=== PATIENT | male | born 1995 ===

== ENCOUNTER 2024-10-19 10:48 | Outpatient (REF) | payer MEDICAID, SELFPAY ==
--- OUTSIDE RECORDS SUMMARY | 2024-10-19 12:38 | XMS_ITS | Encounter Summary ---
Author Organization [employer] Address [address] [facility] [address] [place] [address] Care Team Providers Care Loom Blower Name Role Phone Unavailable Primary Care Provider Unavailabl e Encounter Details Date Type Department Care Team (Late st Contact Info) Description 10/19/2024 9:00 AM EDT Office Visit [facility] [address] [place] [address] Screening examination for STI (Primary Dx); Palpitations Social History Tobacco Use Types Packs/Day Years Used Date Smoking Tobacco: Never Assessed Sex and Gender Information Value Date Recorded Sex Assigned at Male 07/26/2024 9:44 AM EST Legal Sex Male 11:29 AM EDT Gender Identity Male 07/26/2024 9:44 AM EST Sexual Orientation Straight 07/26/2024 9: 44 AM EST documented as of this encounter Last Filed Vital Signs Vital Sign Reading Time Taken Comments Blood Pressure 123/68 10/19/2024 9:14 AM EDT Pulse 67 10/19/2024 9:14 AM EDT Temperature 36.5 ??C (97.7 ??F) 10/19/2024 9:14 AM ED T Respiratory Rate 16 10/19/2024 9:14 AM EDT Oxygen Saturation - - Inhaled Oxygen Concentration - - Weight - - Height - - Body Mass Index - - documented in this encounter Plan of Treatment Scheduled Orders Name Type Priority Associated Diagnoses Orde r Schedule Chlamydia/N. Gonorrhoeae RNA, TMA, Urine Microbiology Routine Screening examination for STI Expected: 10/19/2024 (Approximate), Expires: 10/19/2025 Hepatitis B Core Antibody, Total Lab Routine Screening examination for STI Expected: 10/19/2024 (Approximate), Expires: 10/19/2025 Hepatitis B Surface Antibody, Qualitative Lab Routine Screening examination for STI Expected: 10/19/2024 (Approximate), Expires: 10/19/2025 Hepatitis B surface antigen, EIA Lab Routine Screening examination for STI Expected: 10/19/2024 (Approximate), Expires: 10/19/2025 Hepatitis C Antibody with Reflex to HCV, RNA, Quantitative, Real-Time PCR Lab Routine Screening examination for STI Expected: 10/19/2024 (Approximate), Expires: 10/19/2025 HIV-1/2 Antigen and Antibodies, Fourth Generation, with Reflexes Lab Routine Screening examination for STI Expected: 10/19/2024 (Approximate), Expires: 10/19/2025 Syphilis Screen Lab Routine Screening examination for STI Expected: 10/19/2024 (Approximate), Expires: 10/19/2025 TSH W/Reflex to FT4 Lab Routine Palpitations Expected: 10/19/2024 (Approximate), Expires: 10/19/2025 CBC auto differential Lab Routine Palpitations Expected: 10/19/2024 (Approximate), Expires: 10/19/2025 documented as of this encounter Visit Diagnoses Diagnosis Screening examination for STI- Primary Palpitations documented in this encounter
--- OUTSIDE RECORDS SUMMARY | 2024-10-19 12:38 | XMS_ITS | Clinical Summary ---
Author Organization [employer] Address [address] [facility] [address] [place] [id number] Care Team Providers Care Resident Athletic Trainer Name Role Phone Unavailable Primary Care Provider Unavailabl e Allergies No known active allergies Medications hydrOXYzine HCl (Atarax) 25 MG tabletIndication s:Palpitations Take 1 tablet (25 mg) by mouth 4 times daily. 120 tablet 10/19/2024 Active Encounters Date Type Department Care Team Description 10/19/2024 9:00 AM EDT Office Visit [facility] [address] [place] [address] Screening examination for STI (Primary Dx); Palpitations from Last 3 Months Social History Tobacco Use Types Packs/Day Years Used Date Smoking Tobacco: Never Assessed Sex and Gender Information Value Date Recorded Sex Assigned at Male 07/26/2024 9:44 AM EST Legal Sex Male 11:29 AM EDT Gender Identity Male 07/26/2024 9:44 AM EST Sexual Orientation Straight 07/26/2024 9: 44 AM EST Last Filed Vital Signs Vital Sign Reading Time Taken Comments Blood Pressure 123/68 10/19/2024 9:14 AM EDT Pulse 67 10/19/2024 9:14 AM EDT Temperature 36.5 ??C (97.7 ??F) 10/19/2024 9:14 AM ED T Respiratory Rate 16 10/19/2024 9:14 AM EDT Oxygen Saturation - - Inhaled Oxygen Concentration - - Weight - - Height - - Body Mass Index - - Plan of Treatment Health Maintenance Due Date Last Done Comments Depression Screening 1994 HIV Screening 1994 SDOH Screening 1994 Alcohol/Substance Use Screening 2006 Tobacco Screening 2006 Family Planning (PISQ) 2009 Hepatitis C Screening 2012 DTaP/Tdap/Td Vaccines (1 - Tdap) 2013 Hepatitis B Vaccines (1 of 3 - 19+ 3-dose series) 2013 COVID-19 Vaccine (1 - 2023-2 5 season) 2024 Influenza Vaccine (#1) 2024 Zoster Vaccines (1 of 2) 2044 RSV Patients and Pa tients Aged 60 years or older (1 - 1-dose 75+ series) 2069 HIB Vaccines Aged Out No longer eligi ble based on patient's age to complete this topic HPV Vaccines Aged Out No longer eligi ble based on patient's age to complete this topic Hepatitis A Vaccines Aged Out No long er eligible based on patient's age to complete this topic IPV Vaccines Aged Out No longer eligi ble based on patient's age to complete this topic Meningococcal Vaccine Aged Out No altaf cristopher eligible based on patient's age to complete this topic Pneumococcal Vaccine: Pediat rics (0 to 5 Years) and At-Risk Patients (6 to 49) Years) Aged Out No longer eligible b ased on patient's age to complete this topic RSV under 20 months Aged Out No longe r eligible based on patient's age to complete this topic Rotavirus Vaccines Aged Out No longer eligible based on patient's age to complete this topic Insurance [facility] LIMITED HS FULL
[2024-10-19 13:52] LABS: MANUAL DIFF FLAG NO
[2024-10-19 13:59] LABS: Basophils Percent Auto 0.3 % (0-2); Eosinophils Percent Auto 0.4 % (0-4); Hematocrit 49.5 % (42.0-52.0); Hemoglobin 16.3 g/dl (14.0-18.0); Imm Gran Abs Auto 0.02 X10*3/uL (0.00-0.03); Imm Gran Pct Auto 0.3 % (0.0-0.4); Lymphocytes Absolute Auto 2.3 X10*3/uL (1.2-4.9); Lymphocytes Percent Auto 33.4 % (20-40); Mean Corpuscular HGB Conc 32.9 g/dl (31.0-36.0); Mean Corpuscular Hemoglobin 28.7 pg (27.0-33.0); Mean Corpuscular Volume 87.3 fL (80.0-98.0); Mean Platelet Volume 10.7 fL (9.4-12.4); Monocytes Absolute Auto 0.4 X10*3/uL (0.1-1.2); Monocytes Percent Auto 6.1 % (2-11); Neutrophils Percent Auto 59.5 % (45-73); Platelet Count 254 X10*3/uL (160-400); Red Blood Count 5.67 X10*6/uL (4.60-5.80); Red Cell Distribution Width 13.2 % (11.0-16.0); White Blood Count 6.7 X10*3/uL (4.8-10.8)
[2024-10-19 14:29] LABS: TSH reflex Free T4 1.33 uIU/mL (0.32-4.0)
[2024-10-19 14:30] LABS: Syphilis Screen Nonreactive (Nonreactive)
[2024-10-19 14:33] LABS: HBS Num1 5.54 mIU/mL (0-7.99); HBc Num1 0.09 S/CO (0.00-0.79); HIV AB/AG Nonreactive (Nonreactive); HIV Num 1 0.06 S/CO (0.00-0.99); Hepatitis B Core Antibody Nonreactive (Nonreactive); Hepatitis B Surface Antigen Negative (Negative); ~HepC Num1 0.16 S/CO (0.00-0.79); ~Hepatitis B Surface Antibody NONREACTIVE (Nonreactive); ~Hepatitis C Antibody Nonreactive (Nonreactive)
== END 2024-10-19 10:49 | disposition home or self-care (01) ==
LOC: HO.HHCL 10:48
PROVIDERS: Visit Provider Nurse Practitioner
DX: Z11.3 Encounter for screening for infections with a predominantly sexual mode of transmission (principal); R00.2 Palpitations
CPT/HCPCS: 36415; 84443; 85025; 86704; 86706; 86780; 86803; 87340; 87389

== ENCOUNTER 2024-10-19 16:30 | Outpatient (REF) | payer MEDICAID, SELFPAY ==
--- OUTSIDE RECORDS SUMMARY | 2024-10-19 18:39 | XMS_ITS | Clinical Summary ---
Author Organization [employer] Address [address] [facility] [facility] [address] [place] [address] Care Team Providers Care Cardiograph Operator Name Role Phone Unavailable Primary Care Provider Unavailabl e Allergies No known active allergies Medications * This document contains information received from the source organization and may not represent a complete record from that organization. hydrOXYzine HCl (Atarax) 25 MG tabletIndication s:Palpitations Take 1 tablet (25 mg) by mouth 4 times daily. 120 tablet 10/19/2024 Active Encounters * This document contains information received from the source organization and may not represent a complete record from that organization. Date Type Department Care Team Description 10/19/2024 9:00 AM EDT Office Visit [facility] [address] [place] [address] Palpitations (Primary Dx); Screening examination for STI from Last 3 Months Social History Tobacco [...] Date Last Done Comments Depression Screening 1994 SDOH Screening 1994 Alcohol/Substance Use Screening 2006 Tobacco Screening 2006 Family Planning (PISQ) 2009 DTaP/Tdap/Td Vaccines (1 - Tdap) 2013 Hepatitis B Vaccines (1 of 3 - 19+ 3-dose series) 2013 COVID-19 Vaccine (1 - 2023-2 5 season) 2024 Influenza Vaccine (#1) 2024 Zoster Vaccines (1 of 2) 2044 RSV Patients and Pa tients Aged 60 years or older (1 - 1-dose 75+ series) 2069 HIV Screening Completed 10/19/2024 Hepatitis C Screening Completed 10/19/2024 HIB Vaccines Aged Out No longer eligi [...] to 49) Years) Aged Out No longer elig ible based on patient's age to complete this topic RSV under 20 months Aged Out No longe r eligible based on patient's age to complete this topic Rotavirus Vaccines Aged Out No longer eligible based on patient's age to complete this topic Procedures Procedure Name Priority Date/Time Associated Diagnosis Comments CBC WITH AUTO DIFFERENTIAL Routine 10/19/2024 10:55 AM EDT Palpitations TSH W/REFLEX TO FT4 Routine 10/19/2024 1 0:55 AM EDT Palpitations SYPHILIS SCREEN Routine 10/19/2024 10:55 AM EDT Screening examination for STI HIV 1/2 ANTIGEN/ANTIBODY, FOURTH GENERATION W/RFL Routine 10/19/2024 10:55 AM EDT Screening examination for STI HEPATITIS C AB W/REFL TO HCV RNA, QN, PCR Routine 10/19/2024 10:55 AM EDT Screening examination for STI HEPATITIS B SURFACE ANTIGEN, EIA Routine 10/19/2024 10:55 AM EDT Screening examination for STI HEPATITIS B SURFACE ANTIBODY, QUALITATIVE Routine 10/19/2024 10:55 AM EDT Screening examination for STI HEPATITIS B CORE AB TOTAL Routine 10/19/2024 10:55 AM EDT Screening examination for STI from Last 3 Months Results * Syphilis Screen (10/19/2024 10:55 AM EDT) Pathologist [facility] Syphilis Screen Nonreactive Nonreactive [facility] Blood Venous blood specimen / Unknown 10/19/2024 10:55 AM EDT 10/19/2024 1:[address] [facility] MECHANIC CHIEF LAB BLOOD ORDERABLES Final Resu lt Performing Organization Address City/[facility]/ZIP Co de Phone Number [facility] [address] [place] [address] [phone] * TSH W/Reflex to FT4 (10/19/2024 10:55 AM EDT) Pathologist [facility] TSH reflex Free T4 1.33 0.32 - 4.0 uIU/mL [facility] Blood Venous blood specimen / Unknown 10/19/2024 10:55 AM EDT 10/19/2024 1:49 PM EDT [facility] MECHANIC CHIEF LAB BLOOD ORDERABLES Final Resu lt Performing Organization Address City/[facility]/ZIP Co de Phone Number [facility] [address] [place] [phone] * CBC auto differential (10/19/2024 10:55 AM EDT) Pathologist [facility] White Blood Count 6.7 4.8 - 10.8 X10*3/uL [facility] Red Blood Count 5.67 4.60 - 5.80 X10*6/uL [facility] Hemoglobin 16.3 14.0 - 18.0 g/dl [facility] Hematocrit 49.5 42.0 - 52.0 % [facility] Mean Corpuscular Volume 87.3 80.0 - 98.0 fL [facility] Mean Corpuscular Hemoglobin 28.7 27.0 - 33.0 pg [facility] Mean Corpuscular HGB Conc 32.9 31.0 - 36.0 g/dl [facility] Red Cell Distribution Width 13.2 11.0 - 16.0 % [facility] Platelet Count 254 160 - 400 X10*3/uL [facility] Mean Platelet Volume 10.7 9.4 - 12.4 fL [facility] Neutrophils Percent Auto 59.5 45 - 73 % [facility] Imm Gran Pct Auto 0.3 0.0 - 0.4 % [facility] Lymphocytes Percent Auto 33.4 20 - 40 % [facility] Monocytes Percent Auto 6.1 2 - 11 % [facility] Eosinophils Percent Auto 0.4 0 - 4 % [facility] Basophils Percent Auto 0.3 0 - 2 % [facility] NRBC Pct Auto 0.0 0.0 - 0.2 /100WBC [facility] Neutrophils Absolute Auto 4.0 2.0 - 8.3 x10*3/uL [facility] Imm Gran Abs Auto 0.02 0.00 - 0.03 X10*3/uL [facility] Lymphocytes Absolute Auto 2.3 1.2 - 4.9 X10*3/uL [facility] Monocytes Absolute Auto 0.4 0.1 - 1.2 X10*3/uL [facility] Eosinophils Absolute Auto 0.0 0.0 - 0.4 X10*3/uL [facility] Basophils Absolute Auto 0.0 0.0 - 0.2 X10*3/uL [facility] NRBC Abs Auto 0.000 0.0 - 0.012 X10*3/uL [facility] Blood Venous blood specimen / Unknown 10/19/2024 10:55 AM EDT 10/19/2024 1:49 PM EDT us Jenni Fontana MECHANIC CHIEF LAB BLOOD ORDERABLES Final Resu lt Performing Organization Address City/[facility]/ZIP Co de Phone Number [facility] [address] [place] [phone] * Hepatitis C Antibody with Reflex to HCV, RNA, Quantitative, Real-Time PCR (10/19/2024 10:55 AM EDT) Hepatitis C Antibody Nonreactive Nonreactive [facility] Comment:Antibodies to HCV no t detected; does not exclude early acuteHCV infection. Blood Venous blood specimen / Unknown 10/19/2024 10:55 AM EDT 10/19/2024 1:49 PM EDT Jenni Anthony MECHANIC CHIEF LAB BLOOD ORDERABLES Final Resu lt Performing Organization Address [facility] [[email or web address]] Co de Phone Number [facility] [address] [place] [phone] * Hepatitis B surface antigen, EIA (10/19/2024 10:55 AM EDT) Hepatitis B Surface Ag Negative Negative [facility] Blood Venous blood specimen / Unknown 10/19/2024 10:55 AM EDT 10/19/2024 1:49 PM EDT us Jenni Fontana MECHANIC CHIEF LAB BLOOD ORDERABLES Final Resu lt Performing Organization Address [facility] [[email or web address]] Co de Phone Number [facility] [address] [place] [phone] * Hepatitis B Core Antibody, Total (10/19/2024 10:55 AM EDT) Hepatitis B Core Antibody Nonreactive Nonreactive [facility] Blood Venous blood specimen / Unknown 10/19/2024 10:55 AM EDT 10/19/2024 1:49 PM EDT [facility] MECHANIC CHIEF LAB BLOOD ORDERABLES Final Resu lt Performing Organization Address City/[facility]/ZIP Co de Phone Number [facility] [address] [place] [phone] * HIV-1/2 Antigen and Antibodies, Fourth Generation, with Reflexes (10/19/2024 10:55 AM EDT) HIV AB/AG Nonreactive Nonreactive [facility] Comment:HIV-1 p24 Ag and/or HIV-1/HIV-2 Ab not detected.A test result that is nonreactive does not exclude thepossibility of exposure to or infection with HIV-1 and/orHIV-2. Nonreactive results in this assay for individualswith prior exposure to HIV-1 and/or HIV-2 may be due toantigen and antibody levels that are below the limit ofdetection of this assay.The [employer] HIV Ag/Ab Combo assay result andsupplemental assay results should be interpreted inconjunction with the patient's clinical presentation,history and other laboratory results. If the results areinconsistent with clinical evidence, additional testing issuggested to confirm the result. Blood Venous blood specimen / Unknown 10/19/2024 10:55 AM EDT 10/19/2024 1:49 PM EDT [facility] MECHANIC CHIEF LAB BLOOD ORDERABLES Final Resu lt Performing Organization Address City/[facility]/ZIP Co de Phone Number [facility] [address] [place] [phone] * Hepatitis B Surface Antibody, Qualitative (10/19/2024 10:55 AM EDT) ~Hepatitis B Surface Antibody NONREACTIVE Nonreactive [facility] Comment:Nonreactive: < 8.00 mIU/mL Blood Venous blood specimen / Unknown 10/19/2024 10:55 AM EDT 10/19/2024 1:49 PM EDT us Jenni Fontana MECHANIC CHIEF LAB BLOOD ORDERABLES Final Resu lt [facility] [address] [place] [phone] from Last 3 Months Insurance [employer] [facility] HSN FULL
--- OUTSIDE RECORDS SUMMARY | 2024-10-19 18:39 | XMS_ITS | Encounter Summary ---
Author Organization [employer] Address [address] [place] [address] Care Team Providers Care Offc Spec Name Role Phone Unavailable Primary Care Provider Unavailabl e Encounter Details Date Type Department Care Team (Late st Contact Info) Description 10/19/2024 9:00 AM EDT Office Visit [facility] [address] [place] [address] Palpitations (Primary Dx); Screening examination for STI Social History Tobacco Use Types Packs/Day Years [...] documented in this encounter Plan of Treatment Pending Results Name Type Priority Associated Diagnoses Date /Time ECG 12 lead ECG Routine Palpitations 10/19/2024 1:29 PM EDT Scheduled Orders Name Type Priority Associated Diagnoses Orde r Schedule Chlamydia/N. Gonorrhoeae RNA, TMA, Urine Microbiology Routine Screening examination for STI Expected: 10/19/2024 (Approximate), Expires: 10/19/2025 documented as of this encounter Procedures Procedure Name Priority Date/Time Associated Diagnosis Comments SYPHILIS SCREEN Routine 10/19/2024 10:55 AM EDT Screening examination for STI TSH W/REFLEX TO FT4 Routine 10/19/2024 1 0:55 AM EDT Palpitations CBC WITH AUTO DIFFERENTIAL Routine 10/19/2024 10:55 AM EDT Palpitations HEPATITIS C AB W/REFL TO HCV RNA, [...] 10:55 AM EDT Screening examination for STI documented in this encounter Results * CBC auto differential (10/19/2024 10:55 AM EDT) White Blood Count 6.7 4.8 - 10.8 X10*3/uL [facility] Red Blood Count 5.67 4.60 - 5.80 X10*6/uL [facility] Hemoglobin 16.3 14.0 - 18.0 g/dl [facility] Hematocrit 49.5 42.0 - 52.0 % [facility] Mean Corpuscular Volume 87.3 80.0 - 98.0 fL [facility] Mean Corpuscular Hemoglobin 28.7 27.0 - 33.0 pg [facility] Mean Corpuscular HGB Conc 32.9 31.0 - 36.0 g/dl [facility] Red Cell Distribution Width 13.2 11.0 - 16.0 % [facility] Platelet Count 254 160 - 400 X10*3/uL [facility] Mean Platelet Volume 10.7 9.4 - 12.4 fL [facility] Neutrophils Percent Auto 59.5 45 - 73 % [facility] Imm Gran Pct Auto 0.3 0.0 - 0.4 % [facility] Lymphocytes Percent Auto 33.4 20 - 40 % [facility] Monocytes Percent Auto 6.1 2 - 11 % [facility] Eosinophils Percent Auto 0.4 0 - 4 % [facility] Basophils Percent Auto 0.3 0 - 2 % [facility] NRBC Pct Auto 0.0 0.0 - 0.2 /100WBC [facility] Neutrophils Absolute Auto 4.0 2.0 - 8.3 x10*3/uL [facility] Imm Gran Abs Auto 0.02 0.00 - 0.03 X10*3/uL [facility] Lymphocytes Absolute Auto 2.3 1.2 - 4.9 X10*3/uL [facility] Monocytes Absolute Auto 0.4 0.1 - 1.2 X10*3/uL [facility] Eosinophils Absolute Auto 0.0 0.0 - 0.4 X10*3/uL [facility] Basophils Absolute Auto 0.0 0.0 - 0.2 X10*3/uL [facility] NRBC Abs Auto 0.000 0.0 - 0.012 X10*3/uL [facility] Blood Venous blood specimen / Unknown 10/19/2024 10:55 AM EDT 10/19/2024 1:49 PM EDT us Jenni Fontana IRRIGATION SYSTEM OPERATOR LAB BLOOD ORDERABLES Final Resu lt [facility] [address] [place] [phone] * TSH W/Reflex to FT4 (10/19/2024 10:55 AM EDT) TSH reflex Free T4 1.33 0.32 - 4.0 uIU/mL [facility] Blood Venous blood specimen / Unknown 10/19/2024 10:55 AM EDT 10/19/2024 1:[address] [facility] IRRIGATION SYSTEM OPERATOR LAB BLOOD ORDERABLES Final Resu lt Performing Organization Address City/[facility]/ZIP Co de Phone Number [facility] [address] [place] [phone] * Syphilis Screen (10/19/2024 10:55 AM EDT) Syphilis Screen Nonreactive Nonreactive [facility] Blood Venous blood specimen / Unknown 10/19/2024 10:55 AM EDT 10/19/2024 1:49 PM EDT [facility] LAB BLOOD ORDERABLES Final Resu lt Performing Organization Address City/[facility] Co de Phone Number [facility] [address] [place] [phone] * HIV-1/2 Antigen and Antibodies, Fourth Generation, with Reflexes (10/19/2024 10:55 AM EDT) HIV AB/AG Nonreactive Nonreactive [facility] Comment:HIV-1 p24 Ag and/or HIV-1/HIV-2 Ab not detected.A test result that is nonreactive does not exclude thepossibility of exposure to or infection with HIV-1 and/orHIV-2. Nonreactive results in this assay for individualswith prior exposure to HIV-1 and/or HIV-2 may be due toantigen and antibody levels that are below the limit ofdetection of this assay.The [employer] HIV Ag/Ab Combo assay result andsupplemental assay results should be interpreted inconjunction with the patient's clinical presentation,history and other laboratory results. If the results areinconsistent with clinical evidence, additional testing issuggested to confirm the result. Blood Venous blood specimen / Unknown 10/19/2024 10:55 AM EDT 10/19/2024 1:49 PM EDT Jenni Anthony IRRIGATION SYSTEM OPERATOR LAB BLOOD ORDERABLES Final Resu lt Performing Organization Address [facility] Co de Phone Number [facility] [address] [place] [phone] * Hepatitis C Antibody with Reflex to HCV, RNA, Quantitative, Real-Time PCR (10/19/2024 10:55 AM EDT) Pathologist [facility] Hepatitis C Antibody Nonreactive Nonreactive [facility] Comment:Antibodies to HCV no t detected; does not exclude early acuteHCV infection. Blood Venous blood specimen / Unknown 10/19/2024 10:55 AM EDT 10/19/2024 1:49 PM EDT Jenni [facility] LAB BLOOD ORDERABLES Final Resu lt Performing Organization Address [facility] Co de Phone Number [facility] [address] [place] [phone] * Hepatitis B surface antigen, EIA (10/19/2024 10:55 AM EDT) [facility] Hepatitis B Surface Ag Negative Negative [facility] Blood Venous blood specimen / Unknown 10/19/2024 10:55 AM EDT 10/19/2024 1:[address] [facility] IRRIGATION SYSTEM OPERATOR LAB BLOOD ORDERABLES Final Resu lt Performing Organization Address [facility] Co de Phone Number [facility] [address] [place] [phone] * Hepatitis B Surface Antibody, Qualitative (10/19/2024 10:55 AM EDT) Pathologist [facility] ~Hepatitis B Surface Antibody NONREACTIVE Nonreactive [facility] Comment:Nonreactive: < 8.00 mIU/mL Blood Venous blood specimen / Unknown 10/19/2024 10:55 AM EDT 10/19/2024 1:49 PM EDT us Jenni Fontana IRRIGATION SYSTEM OPERATOR LAB BLOOD ORDERABLES Final Resu lt Performing Organization Address City/[facility]/ZIP Co de Phone Number [facility] [address] [place] [phone] * Hepatitis B Core Antibody, Total (10/19/2024 10:55 AM EDT) Hepatitis B Core Antibody Nonreactive Nonreactive [facility] Blood Venous blood specimen / Unknown 10/19/2024 10:55 AM EDT 10/19/2024 1:49 PM EDT us Jenni Fontana IRRIGATION SYSTEM OPERATOR LAB BLOOD ORDERABLES Final Resu lt Performing Organization Address [facility]/ZIP Co de Phone Number [facility] [address] [place] [phone] documented in this encounter Visit Diagnoses Diagnosis Palpitations- Primary Screening examination for STI documented in this encounter
[2024-10-20 05:25] LABS: CT PCR DETECTED (Not Detect.); NG PCR DETECTED (Not Detect.)
== END 2024-10-19 16:31 | disposition home or self-care (01) ==
LOC: HO.HHCL 16:30
PROVIDERS: Visit Provider Nurse Practitioner
DX: Z11.3 Encounter for screening for infections with a predominantly sexual mode of transmission (principal)
CPT/HCPCS: 87491; 87591